=== PATIENT | male | born 1980 | race Caucasian/White ===

== ENCOUNTER 2019-12-30 05:44 | Observation (INO) | payer OTHER ==
[2019-12-30] MEDS ORDERED: ONDANSETRON 4 MG/2 ML VIAL IVP STA (06:18)
[2019-12-30] MEDS ORDERED: SODIUM CHLORIDE 0.9% 1,000 ML IV STA ×2 (06:18)
[2019-12-30] MEDS ORDERED: KETOROLAC 30 MG/ML 1 ML VIAL IVP STA (06:18)
[2019-12-30] MEDS ORDERED: MORPHINE SULFATE 4 MG/ML SYRINGE IV STA (06:18)
--- NOTE | 2019-12-30 06:35 | ED ---
Abdominal Pain HPI <Dilan Santos - Last Filed: 12/30/19 09:05> - General Source: patient, RN notes reviewed, old records reviewed Mode of arrival: ambulatory Limitations: no limitations <Melina Peralta - Last Filed: 12/30/19 09:32> - General Chief Complaint: Abdominal Pain Stated Complaint: abd pain Time Seen by Provider: 12/30/19 06:02 - History of Present Illness Initial Comments: Dylon is a 39-year-old male who presents emergency department today for evaluation for her sudden onset of right lower quadrant abdominal pain and passing blood clots in the Urine last night. He reports for the past 2 hours she's not been able to urinate. He complains of some nausea and did vomit early this morning. Denies any significant changes in the stool. Denies any fevers or chills. Patient has a history of polycystic kidney disease. Reports is followed with urologist many years ago. (Melina Peralta) - Related Data Home Medications Medication Instructions Recorded Confirmed Loratadine [Claritin] 10 mg PO DAILY 12/30/19 12/30/19 Losartan Potassium 100 mg PO DAILY 12/30/19 12/30/19 Metoprolol Succinate [Toprol XL] 50 mg PO HS 12/30/19 12/30/19 Multivit-Min/Folic/Vit K/Lycop 1 tab PO DAILY 12/30/19 12/30/19 [Men's Multivitamin Tablet] Allergies Allergy/AdvReac Type Severity Reaction Status Date / Time Penicillins Allergy Unknown Verified 12/30/19 07:42 Childhood Sulfa (Sulfonamide Allergy Unknown Verified 12/30/19 07:42 Antibiotics) Childhood Review of Systems ROS Other: All systems not noted in ROS Statement are negative. <Dilan Santos - Last Filed: 12/30/19 09:05> ROS Other: All systems not noted in ROS Statement are negative. <Melina Prealta - Last Filed: 12/30/19 09:32> ROS Statement: Those systems with pertinent positive or pertinent negative responses have been documented in the HPI. Past Medical History Past Medical History: Hypertension Additional Past Medical History / Comment(s): polycystic kidney History of Any Multi-Drug Resistant Organisms: None Reported Past Surgical History: No Surgical Hx Reported Past Psychological History: No Psychological Hx Reported Smoking Status: Current every day smoker Past Alcohol Use History: Daily Past Drug Use History: None Reported <KathrynMelina - Last Filed: 12/30/19 09:32> General Exam Limitations: no limitations General appearance: alert, in no apparent distress Head exam: Present: atraumatic, normocephalic, normal inspection Eye exam: Present: normal appearance, PERRL, EOMI. Absent: scleral icterus, conjunctival injection, periorbital swelling ENT exam: Present: normal exam, mucous membranes moist Neck exam: Present: normal inspection. Absent: tenderness, meningismus, ly mphadenopathy Respiratory exam: Present: normal lung sounds bilaterally. Absent: respiratory distress, wheezes, rales, rhonchi, stridor Cardiovascular Exam: Present: regular rate, normal rhythm, normal heart sounds. Absent: systolic murmur, diastolic murmur, rubs, gallop, clicks GI/Abdominal exam: Present: soft, normal bowel sounds. Absent: distended, tenderness, guarding, rebound, rigid Extremities exam: Present: normal inspection, full ROM, normal capillary refill. Absent: tenderness, pedal edema, joint swelling, calf tenderness Back exam: Present: normal inspection, full ROM Neurological exam: Present: alert, oriented X3, CN II-XII intact Psychiatric exam: Present: normal affect, normal mood Skin exam: Present: warm, dry, intact, normal color. Absent: rash <Maggie Peraltaily - Last Filed: 12/30/19 09:32> - General Exam Comments Initial Comments: Alert and oriented 39-year-old male. No significant distress. (Melina Peralta) Course Vital Signs 12/30/19 12/30/19 05:50 07:18 Temperature 98.1 F 98.3 F Pulse Rate 82 91 Respiratory 18 18 Rate Blood Pressure 188/112 148/89 O2 Sat by Pulse 99 97 Oximetry Medical Decision Making - Lab Data Result diagrams: 12/30/19 08:47 12/30/19 06:29 <Dilan Santos - Last Filed: 12/30/19 09:05> - Lab Data Result diagrams: 12/30/19 08:47 12/30/19 06:29 - Radiology Data Radiology results: report reviewed <Melina Peralta - Last Filed: 12/30/19 09:32> - Medical Decision Making Patient reevaluated and reexamined by myself, Dr. Santos. Patient states he has been having waxing and waning symptoms for the past 2 days. Discomfort was moderate to severe earlier. Discomfort is near resolved at this time. Discomfort was mostly right lower flank pain patient reexamined and reevaluated. I do agree with a findings. This includes diagnostic interpretation and treat ment plan. Case was discussed in detail with Dr. Pittman who recommended repeat white blood cell count and if still elevated to admit to medicine with infectious disease consult. He does question infected cyst. Case was also discussed with Dr. Aviles, who will admit For hospital call. (Dilan Santos) 39-year-old male presents return today with waxing and waning right lower quadrant abdominal pain and flank pain starting last night into this morning. Patient had some relief quadrant tenderness. He refused any pain medication emergency department. Patient's labs showed significant leukocytosis of 30,000. Urinalysis was eventually completed and did have significant amount of hematuria. He has no fever at this time. I discussed case with Dr. Santos from discussed the case with urologist Dr. Pittman. This time and started the Patient on Rocephin after his repeated CBCs discontinue the elevated at 26,000. (Melina Peralta) - Lab Data Lab Results 12/30/19 12/30/19 12/30/19 Range/Units 06:26 06:29 07:45 WBC 31.2 H (3.8-10.6) k/uL RBC 4.81 (4.30-5.90) m/uL Hgb 15.2 (13.0-17.5) gm/dL Hct 45.1 (39.0-53.0) % MCV 93.8 (80.0-100.0) fL MCH 31.6 (25.0-35.0) pg MCHC 33.6 (31.0-37.0) g/dL RDW 13.1 (11.5-15.5) % Plt Count 258 (150-450) k/uL Neutrophils % 88 % Lymphocytes % 6 % Monocytes % 4 % Eosinophils % 1 % Basophils % 0 % Neutrophils # 27.5 H (1.3-7.7) k/uL Lymphocytes # 1.7 (1.0-4.8) k/uL Monocytes # 1.3 H (0-1.0) k/uL Eosinophils # 0.2 (0-0.7) k/uL Basophils # 0.1 (0-0.2) k/uL Sodium 133 L (137-145) mmol/L Potassium 4.5 (3.5-5.1) mmol/L Chloride 101 (98-107) mmol/L Carbon Dioxide 24 (22-30) mmol/L Anion Gap 8 mmol/L BUN 33 H (9-20) mg/dL Creatinine 1.66 H (0.66-1.25) mg/dL Est GFR (CKD-EPI)AfAm 58 (>60 ml/min/1.73 sqM) Est GFR (CKD-EPI)NonAf 51 (>60 ml/min/1.73 sqM) Glucose 121 H (74-99) mg/dL Calcium 9.3 (8.4-10.2) mg/dL Total Bilirubin 0.5 (0.2-1.3) mg/dL AST 25 (17-59) U/L ALT 14 (4-49) U/L Alkaline Phosphatase 58 (38-126) U/L Total Protein 6.7 (6.3-8.2) g/dL Albumin 4.4 (3.5-5.0) g/dL Amylase 103 (30-110) U/L Lipase 150 (23-300) U/L Urine Color Light Red Urine Appearance Cloudy (Clear) Urine pH 5.5 (5.0-8.0) Ur Specific Wallace 1.010 (1.001-1.035) Urine Protein 1+ H (Negative) Urine Glucose (UA) Negative (Negative) Urine Ketones 1+ H (Negative) Urine Blood Large H (Negative) Urine Nitrite Negative (Negative) Urine Bilirubin Negative (Negative) Urine Urobilinogen <2.0 (<2.0) mg/dL Ur Leukocyte Esterase Small H (Negative) Urine RBC >182 H (0-5) /hpf Urine WBC 21 H (0-5) /hpf Ur Squamous Epith Cells 2 (0-4) /hpf Urine Bacteria Occasional H (None) /hpf Urine Mucus Occasional H (None) /hpf 12/30/19 Range/Units 08:47 WBC 26.9 H (3.8-10.6) k/uL RBC 4.53 (4.30-5.90) m/uL Hgb 14.3 (13.0-17.5) gm/dL Hct 42.2 (39.0-53.0) % MCV 93.3 (80.0-100.0) fL MCH 31.5 (25.0-35.0) pg MCHC 33.8 (31.0-37.0) g/dL RDW 13.2 (11.5-15.5) % Plt Count 251 (150-450) k/uL Neutrophils % 89 % Lymphocytes % 7 % Monocytes % 3 % Eosinophils % 1 % Basophils % 0 % Neutrophils # 23.8 H (1.3-7.7) k/uL Lymphocytes # 1.8 (1.0-4.8) k/uL Monocytes # 0.9 (0-1.0) k/uL Eosinophils # 0.2 (0-0.7) k/uL Basophils # 0.0 (0-0.2) k/uL Sodium (137-145) mmol/L Potassium (3.5-5.1) mmol/L Chloride (98-107) mmol/L Carbon Dioxide (22-30) mmol/L Anion Gap mmol/L BUN (9-20) mg/dL Creatinine (0.66-1.25) mg/dL Est GFR (CKD-EPI)AfAm (>60 ml/min/1.73 sqM) Est GFR (CKD-EPI)NonAf (>60 ml/min/1.73 sqM) Glucose (74-99) mg/dL Calcium (8.4-10.2) mg/dL Total Bilirubin (0.2-1.3) mg/dL AST (17-59) U/L ALT (4-49) U/L Alkaline Phosphatase (38-126) U/L Total Protein (6.3-8.2) g/dL Albumin (3.5-5.0) g/dL Amylase (30-110) U/L Lipase (23-300) U/L Urine Color Urine Appearance (Clear) Urine pH (5.0-8.0) Ur Specific Wallace (1.001-1.035) Urine Protein (Negative) Urine Glucose (UA) (Negative) Urine Ketones (Negative) Urine Blood (Negative) Urine Nitrite (Negative) Urine Bilirubin (Negative) Urine Urobilinogen (<2.0) mg/dL Ur Leukocyte Esterase (Negative) Urine RBC (0-5) /hpf Urine WBC (0-5) /hpf Ur Squamous Epith Cells (0-4) /hpf Urine Bacteria (None) /hpf Urine Mucus (None) /hpf - Radiology Data Numerous hepatic and renal cysts related processes a kidney disease. Massive enlargement of both kidneys. Complex bilateral numerous renal cyst containing some calcium. No definite sign of renal obstruction. Numerous bilateral renal colliculi. No sign of ureteral calculus. (Melina Peralta) Disposition <Dilan Santos - Last Filed: 12/30/19 09:05> Is patient prescribed a controlled substance at d/c from ED?: No Time of Disposition: 09:31 <Melina Peralta - Last Filed: 12/30/19 09:32> Clinical Impression: Leukocytosis, PCK (polycystic kidney disease), Right flank pain Disposition: ADMITTED IP TO THIS HOSP Condition: Stable Referrals: Michael Marvin MD [Primary Care Provider] - 1-2 days
[2019-12-30 06:44] LABS: Basophils # (A) 0.1 k/uL (0-0.2); Basophils % (A) 0 %; Eosinophils # (A) 0.2 k/uL (0-0.7); Eosinophils % (A) 1 %; HCT 45.1 % (39.0-53.0); HGB 15.2 gm/dL (13.0-17.5); Lymphocytes # (A) 1.7 k/uL (1.0-4.8); Lymphocytes % (A) 6 %; MCH 31.6 pg (25.0-35.0); MCHC 33.6 g/dL (31.0-37.0); MCV 93.8 fL (80.0-100.0); Mean Platelet Volume 8.9; Monocytes # (A) 1.3 k/uL (0-1.0); Monocytes % (A) 4 %; Neutrophils # (A) 27.5 k/uL (1.3-7.7); Neutrophils % (A) 88 %; Platelet Count 258 k/uL (150-450); RBC 4.81 m/uL (4.30-5.90); RDW 13.1 % (11.5-15.5); WBC 31.2 k/uL (3.8-10.6)
[2019-12-30 06:44] LABS: Albumin 4.4 g/dL (3.5-5.0); Calcium 9.3 mg/dL (8.4-10.2); Potassium 4.5 mmol/L (3.5-5.1); Total Bilirubin 0.5 mg/dL (0.2-1.3); Total Protein 6.7 g/dL (6.3-8.2)
--- NOTE | 2019-12-30 07:04 | CT ---
EXAMINATION TYPE: CT abdomen pelvis wo con DATE OF EXAM: 12/30/2019 COMPARISON: None HISTORY: Flank pain, Kidney sstone suspected CT DLP: 465.2 mGycm Automated exposure control for dose reduction was used. Images were obtained from the diaphragm to the floor the pelvis with no contrast. Lung bases are clear of consolidation. There is no pleural effusion. Heart size is normal. There is n o pericardial effusion. There are numerous cysts throughout the liver that measure up to 3.5 cm. The bile ducts are not dilated. Spleen is intact. Stomach is intact. There is no sign of pancreatic mass. There is significant enlargement of the kidneys due to polycystic kidney disease. The left kidney me asures 19.5 cm in length. The right kidney measures 18 cm in length. There are multiple tiny calculi in both kidneys that measure up to 4 mm. There is a single 11 mm calculus anterior left kidney. There are multiple small calcified renal cysts that measure up to 1.5 cm. I see no sign of hydronephrosis. Bladder distends smoothly. Ureters are not dilated. Prostate is enlarged and measures 5.1 cm. There is no inguinal hernia. There is no free fluid in the pelvis. Appendix is posterior and appears normal . There is no mesenteric edema. There is no ascites or free air. There is no sign of a bowel obstructio n. There is no evidence of retroperitoneal adenopathy. There is intact lumbar spine. There is no comp ression fracture. Bony pelvis is intact. IMPRESSION: Numerous hepatic and renal cysts related to polycystic disease. Massive enlargement of both kidneys. Complex bilateral numerous renal cysts contain some calcium. No definite sign of renal obstruction. N umerous bilateral small renal calculi. No sign of a ureteral calculus.
[2019-12-30] MEDS ORDERED: SODIUM CHLORIDE 0.9% 1,000 ML IV ONE (07:16)
[2019-12-30 08:12] LABS: Appearance,Urine Cloudy (Clear); Bacteria,Urine Occasional /hpf; Bilirubin,Urine Negative (Negative); Blood,Urine Large (Negative); Color,Urine Light Red; Glucose,Urine (UA) Negative (Negative); Ketones,Urine 1+ (Negative); Leukocyte Esterase,Urine Small (Negative); Mucus,Urine Occasional /hpf; Nitrite,Urine Negative (Negative); PH, Urine 5.5 (5.0-8.0); Protein,Urine 1+ (Negative); RBC,Urine >182 /hpf (0-5); Squamous Epithelial Cell,Urine 2 /hpf (0-4); Urobilinogen,Urine <2.0 mg/dL (<2.0); WBC,Urine 21 /hpf (0-5)
[2019-12-30 08:57] LABS: Basophils % (A) 0 %; Eosinophils # (A) 0.2 k/uL (0-0.7); Eosinophils % (A) 1 %; HCT 42.2 % (39.0-53.0); HGB 14.3 gm/dL (13.0-17.5); Lymphocytes # (A) 1.8 k/uL (1.0-4.8); Lymphocytes % (A) 7 %; MCH 31.5 pg (25.0-35.0); MCHC 33.8 g/dL (31.0-37.0); MCV 93.3 fL (80.0-100.0); Mean Platelet Volume 7.7; Monocytes # (A) 0.9 k/uL (0-1.0); Monocytes % (A) 3 %; Neutrophils # (A) 23.8 k/uL (1.3-7.7); Neutrophils % (A) 89 %; Platelet Count 251 k/uL (150-450); RBC 4.53 m/uL (4.30-5.90); RDW 13.2 % (11.5-15.5); WBC 26.9 k/uL (3.8-10.6)
[2019-12-30] MEDS ORDERED: KETOROLAC 30 MG/ML 1 ML VIAL IVP PRN (09:32)
[2019-12-30] MEDS ORDERED: NALOXONE 0.4 MG/ML 1 ML VIAL IV PRN (09:32)
[2019-12-30] MEDS ORDERED: IBUPROFEN 400 MG TAB PO PRN (09:32)
[2019-12-30] MEDS ORDERED: ACETAMINOPHEN TAB 325 MG TAB PO PRN (09:32)
[2019-12-30] MEDS ORDERED: ONDANSETRON 4 MG/2 ML VIAL IVP PRN (09:32)
[2019-12-30] MEDS ORDERED: MORPHINE SULFATE 4 MG/ML SYRINGE IV PRN (09:32)
[2019-12-30] MEDS: SODIUM CHLORIDE 0.9% 1,000 ML IV SCH (09:46)
--- NOTE | 2019-12-30 17:33 | HP ---
HISTORY AND PHYSICAL CHIEF COMPLAINT: This is a 39-year-old male who presents with right lower quadrant abdominal pain and severe hematuria for the last 2 days. He states now since he has been in the hospital, the pain has resolved, his urine is more clear now, but he has never had 2 days of pain and blood before. He has a history of polycystic kidney disease and hypertension but no history of renal stones. He has not had bleeding like this ever before. His home medicines are losartan 100 mg daily, Claritin 10 mg daily, metoprolol 50 mg daily, multivitamin daily. ALLERGIES: PENICILLIN, SULFA. REVIEW OF SYSTEMS: Fourteen-point review of systems otherwise negative. PAST MEDICAL HISTORY: Hypertension, polycystic kidney disease. SOCIAL HISTORY: Current everyday smoker, half pack a day since age 11. Daily alcohol, 2-3 beers a day. No drugs. PHYSICAL EXAMINATION: PSYCH: He is cooperative, giving appropriate answers. Fair mood and affect. NEURO: Cranial nerves are intact. Pupils equal, round, reactive. No scleral icterus. LUNGS: Clear. CARDIOVASCULAR: S1, S2. GI: Soft. Normal bowel sounds. Non-tender. No flank tenderness. EXTREMITIES: No cyanosis, clubbing, edema. normal inspection. Full range of motion. SKIN: Warm, dry, intact. VITAL SIGNS: Temperature 98.1, respiratory rate 16 to 18. Blood pressure on admission was 188/112, currently 140s over 80s, O2 97% on room air. White count was elevated at 26.9, hemoglobin was 14.3, BUN is 32, creatinine 1.66. Dr. Mendoza, urologist, is consulted. We are going to consult Infectious Disease for elevated white count. No signs of any fevers. Polycystic renal disease versus infected cyst. Consult Infectious Disease. Possibly treat with antibiotics at this time. Rehydrate the patient. Continue with Rocephin. Monitor CBCs. Prognosis guarded. MMODL / IJN: [id number] /
--- NOTE | 2019-12-30 18:25 | P.GSCN ---
History of Present Illness Consult date: 12/30/19 History of present illness: This is a pleasant 39-year-old gentleman who presented to the emergency room with abdominal pain on the right side right flank pain and gross hematuria today. The patient has a known history of autosomal dominant polycystic kidney disease. His mother and grandfather both had renal failure due to this. He has seen a senior web services developer in [place] but not recently due to lack of insurance. He is aware of his disease and pending renal failure. In the emergency room he was found to have an elevated white count of 30,000. His urinalysis showed 180 red cells and 20 white cells. A computed tomography scan showed classic autosomal dominant polycystic kidneys. There are no obvious masses just multiple cysts. By the time I see him this afternoon the white count dropped to 26,000. His hematuria is cleared as has his pain. He denies any lower urinary tract symptoms other than when he passed the blood. He has not had any problems with urinary tract infections or voiding. He does admit to recent treatment with steroids due to sinus problems. He just finished this a few days ago. This perhaps could explain the elevated white blood cell count. He is never seen a urologist before. Review of Systems All systems: negative - Constitutional Denies fever, Denies weight loss - EENT Eyes: denies blurred vision Ears, nose, mouth and throat: Denies dysphagia - Cardiovascular Denies chest pain, Denies shortness of breath - Respiratory Denies cough, Denies 7 - Gastrointestinal Reports as per HPI - Genitourinary Denies dysuria, Denies hematuria - Integumentary Denies rash, Denies unusual bruising - Neurological Denies headaches, Denies syncope - Hematologic/Lymphatic Denies easy bleeding, Denies easy bruising Past Medical History Past Medical History: GERD/Reflux, Hypertension, Pneumonia, Renal Disease Additional Past Medical History / Comment(s): Polycystc kidney disease, hematuria, recent L shoulder injury, bronchitis, environmental allergies. History of Any Multi-Drug Resistant Organisms: None Reported Past Surgical History: No Surgical Hx Reported Past Anesthesia/Blood Transfusion Reactions: Unable to Obtain Additional Past Anesthesia/Blood Transfusion Reaction / Comm: Pt has never had surgery Smoking Status: Current every day smoker - Past Family History Father Family Medical History: COPD, Coronary Artery Disease (CAD), Diabetes Mellitus Additional Family Medical History / Comment(s): Father had a OH in his 50s. Mother Family Medical History: Congestive Heart Failure (CHF), Renal Disease Additional Family Medical History / Comment(s): Mother at the age of 68yrs. Medications and Allergies Home Medications Medication Instructions Recorded Confirmed Type Loratadine [Claritin] 10 mg PO DAILY 12/30/19 12/30/19 History Losartan Potassium 100 mg PO DAILY 12/30/19 12/30/19 History Metoprolol Succinate [Toprol XL] 50 mg PO HS 12/30/19 12/30/19 History Multivit-Min/Folic/Vit K/Lycop 1 tab PO DAILY 12/30/19 12/30/19 History [Men's Multivitamin Tablet] Allergies Allergy/AdvReac Type Severity Reaction Status Date / Time Penicillins Allergy Unknown Verified 12/30/19 07:42 Childhood Sulfa (Sulfonamide Allergy Unknown Verified 12/30/19 07:42 Antibiotics) Childhood Surgical - Exam Vital Signs Temp Pulse Resp BP Pulse Ox 98.1 F 82 18 188/112 99 12/30/19 05:50 12/30/19 05:50 12/30/19 05:50 12/30/19 05:50 12/30/19 05:50 - General well developed, well nourished, no distress - Eyes PERRL - ENT no hearing loss - Neck no masses, trachea midline - Respiratory normal expansion, normal respiratory effort - Cardiovascular Rhythm: regular - Abdomen Abdomen: soft, non tender - Genitourinary normal penis with no external lesions, testicles present - Integumentary no rash, no growths - Neurologic normal coordination, normal sensation - Musculoskeletal normal posture - Psychiatric oriented to time, oriented to person, oriented to place, speech is normal, memory intact Results - Labs 12/30/19 08:47 12/30/19 06:29 Abnormal Lab Results - Last 24 Hours (Table) 12/30/19 12/30/19 12/30/19 Range/Units 06:26 06:29 07:45 WBC 31.2 H (3.8-10.6) k/uL Neutrophils # 27.5 H (1.3-7.7) k/uL Monocytes # 1.3 H (0-1.0) k/uL Sodium 133 L (137-145) mmol/L BUN 33 H (9-20) mg/dL Creatinine 1.66 H (0.66-1.25) mg/dL Glucose 121 H (74-99) mg/dL Urine Protein 1+ H (Negative) Urine Ketones 1+ H (Negative) Urine Blood Large H (Negative) Ur Leukocyte Esterase Small H (Negative) Urine RBC >182 H (0-5) /hpf Urine WBC 21 H (0-5) /hpf Urine Bacteria Occasional H (None) /hpf Urine Mucus Occasional H (None) /hpf 12/30/19 Range/Units 08:47 WBC 26.9 H (3.8-10.6) k/uL Neutrophils # 23.8 H (1.3-7.7) k/uL Monocytes # (0-1.0) k/uL Sodium (137-145) mmol/L BUN (9-20) mg/dL Creatinine (0.66-1.25) mg/dL Glucose (74-99) mg/dL Urine Protein (Negative) Urine Ketones (Negative) Urine Blood (Negative) Ur Leukocyte Esterase (Negative) Urine RBC (0-5) /hpf Urine WBC (0-5) /hpf Urine Bacteria (None) /hpf Urine Mucus (None) /hpf Microbiology - Last 24 Hours (Table) 12/30/19 07:45 Urine Culture - Preliminary Urine,Voided Diabetes panel 12/30/19 Range/Units 06:29 Sodium 133 L (137-145) mmol/L Potassium 4.5 (3.5-5.1) mmol/L Chloride 101 (98-107) mmol/L Carbon Dioxide 24 (22-30) mmol/L BUN 33 H (9-20) mg/dL Creatinine 1.66 H (0.66-1.25) mg/dL Glucose 121 H (74-99) mg/dL Calcium 9.3 (8.4-10.2) mg/dL AST 25 (17-59) U/L ALT 14 (4-49) U/L Alkaline Phosphatase 58 (38-126) U/L Total Protein 6.7 (6.3-8.2) g/dL Albumin 4.4 (3.5-5.0) g/dL Calcium panel 12/30/19 Range/Units 06:29 Calcium 9.3 (8.4-10.2) mg/dL Albumin 4.4 (3.5-5.0) g/dL Pituitary panel 12/30/19 Range/Units 06:29 Sodium 133 L (137-145) mmol/L Potassium 4.5 (3.5-5.1) mmol/L Chloride 101 (98-107) mmol/L Carbon Dioxide 24 (22-30) mmol/L BUN 33 H (9-20) mg/dL Creatinine 1.66 H (0.66-1.25) mg/dL Glucose 121 H (74-99) mg/dL Calcium 9.3 (8.4-10.2) mg/dL Adrenal panel 12/30/19 Range/Units 06:29 Sodium 133 L (137-145) mmol/L Potassium 4.5 (3.5-5.1) mmol/L Chloride 101 (98-107) mmol/L Carbon Dioxide 24 (22-30) mmol/L BUN 33 H (9-20) mg/dL Creatinine 1.66 H (0.66-1.25) mg/dL Glucose 121 H (74-99) mg/dL Calcium 9.3 (8.4-10.2) mg/dL Total Bilirubin 0.5 (0.2-1.3) mg/dL AST 25 (17-59) U/L ALT 14 (4-49) U/L Alkaline Phosphatase 58 (38-126) U/L Total Protein 6.7 (6.3-8.2) g/dL Albumin 4.4 (3.5-5.0) g/dL - Imaging CT scan - abdomen: report reviewed, image reviewed CT scan - pelvis: report reviewed, image reviewed Assessment and Plan Assessment: Impression: Gross hematuria secondary to probable ruptured cyst from a cystic kidneys. Autosomal dominant polycystic kidney disease with renal insufficiency. Elevated white count perhaps due to the pain and trauma of the ruptured cyst aggravated by the recent steroid usage for sinus problems. Recommendations: Ultrasound been obtained. I do not see any obvious masses other than the renal cysts. I did discuss with the patient about the rare but potential possibility of renal masses associated with polycystic kidneys. The patient does need nephrology follow-up here locally as he eventually will go on to complete renal failure need dialysis and hopeful transplantation. He understands this. I'll follow this patient with you.
--- NOTE | 2019-12-30 18:56 | XR ---
EXAMINATION: XR chest 2V DATE AND TIME: 12/30/2019 5:42 PM CLINICAL INDICATION: PHH; leukocytosis TECHNIQUE: Departmental protocol COMPARISON: None FINDINGS: The lungs are clear. The pleural spaces are negative. The cardiac silhouette is not enlarged. The remainder of the mediastinal silhouette is unremarkable. The skeletal structures and soft tissues are negative for acute findings. IMPRESSION: NO ACUTE PROCESS.
[2019-12-30] MEDS: LOSARTAN 50 MG TAB PO SCH (20:56)
[2019-12-30] MEDS ORDERED: METOPROLOL SUCCINATE (ER) 50 MG TAB.ER.24H PO SCH (21:00)
[2019-12-31] MEDS: SODIUM CHLORIDE 0.9% 1,000 ML IV SCH ×2 (07:04→16:21)
--- NOTE | 2019-12-31 08:03 | P.CONS ---
History of Present Illness - Reason for Consult Consult date: 12/30/19 Urinary tract infection Requesting physician: Valentín Aviles - Chief Complaint Right-sided flank pain and hematuria x few days - History of Present Illness Patient is 39 year male with a past medical history significant for polycystic kidney disease in this patient presented in outpatient setting with steroids for a sinus infection by his primary care physician patient is presenting to the ER received copies of right flank pain that has been more sudden onset and progressively get worse to be almost 10 out of 10 and this is some nausea no vomiting. Sulfa complaining of hematuria for 2 days denies significant burning or fever no chest pain or shortness of with the second and the patient presented to the hospital on arrival to the ER the patient was afeb rile however he did have white count 31,000 patient did have a positive UA but predominantly with hematuria patient did have a CT of abdominal pelvis which shows bilateral renal and hepatic cyst with significant involvement of the kidneys hence feel complicated renal cyst patient was started on Rocephin 1 g every 12 hours infectious disease was consulted for further management of antibiotic therapy Review of Systems Positive point has been mentioned in the HPI rest of the systems are negative Past Medical History Past Medical History: GERD/Reflux, Hypertension, Pneumonia, Renal Disease Additional Past Medical History / Comment(s): Polycystc kidney disease, hematuria, recent L shoulder injury, bronchitis, environmental allergies. History of Any Multi-Drug Resistant Organisms: None Reported Past Surgical History: No Surgical Hx Reported Past Anesthesia/Blood Transfusion Reactions: Unable to Obtain Additional Past Anesthesia/Blood Transfusion Reaction / Comm: Pt has never had surgery Smoking Status: Current every day smoker - Past Family History Father Family Medical History: COPD, Coronary Artery Disease (CAD), Diabetes Mellitus Additional Family Medical History / Comment(s): Father had a AR in his 50s. Mother Family Medical History: Congestive Heart Failure (CHF), Renal Disease Additional Family Medical History / Comment(s): Mother at the age of 68yrs. Medications and Allergies Home Medications Medication Instructions Recorded Confirmed Type Loratadine [Claritin] 10 mg PO DAILY 12/30/19 12/30/19 History Losartan Potassium 100 mg PO DAILY 12/30/19 12/30/19 History Metoprolol Succinate [Toprol XL] 50 mg PO HS 12/30/19 12/30/19 History Multivit-Min/Folic/Vit K/Lycop 1 tab PO DAILY 12/30/19 12/30/19 History [Men's Multivitamin Tablet] Allergies Allergy/AdvReac Type Severity Reaction Status Date / Time Penicillins Allergy Unknown Verified 12/30/19 07:42 Childhood Sulfa (Sulfonamide Allergy Unknown Verified 12/30/19 07:42 Antibiotics) Childhood Physical Exam Vitals: Vital Signs Temp Pulse Pulse Pulse Resp BP BP 12/30/19 19:10 99.4 F 77 22 167/98 12/30/19 14:41 98.4 F 79 16 156/96 12/30/19 12:03 98.1 F 79 16 147/98 12/30/19 09:40 98.5 F 87 18 151/98 12/30/19 07:18 98.3 F 91 18 148/89 12/30/19 05:50 98.1 F 82 18 188/112 Pulse Ox 12/30/19 19:10 96 12/30/19 14:41 98 12/30/19 12:03 95 12/30/19 09:40 98 12/30/19 07:18 97 12/30/19 05:50 99 Intake and Output 12/30/19 12/30/19 12/30/19 06:59 14:59 22:59 Intake Total 540 Output Total 1250 Balance -710 Intake: Oral 540 Output: Urine 1250 Other: Voiding Method Toilet Toilet # Voids 1 Weight 68.039 kg 68.039 kg GENERAL DESCRIPTION: Middle-aged male lying in bed, no distress. No tachypnea or accessory muscle of respiration use. HEENT: Shows Pallor , no scleral icterus. Oral mucous membrane is dry. No pharyngeal erythema or thrush NECK: Trachea central, no thyromegaly. LUNGS: Unlabored breathing. Clear to auscultation anteriorly. No wheeze or crackle. HEART: S1, S2, regular rate and rhythm. No loud murmur ABDOMEN: Soft, no tenderness , guarding or rigidity, no organomegaly EXTREMITIES: No edema of feet. SKIN: No rash, no masses palpable. NEUROLOGICAL: The patient is awake, alert, oriented x3, mood and affect normal. Results CBC & Chem 7: 12/30/19 08:47 12/30/19 06:29 Labs: Abnormal Lab Results - Last 24 Hours (Table) 12/30/19 12/30/19 12/30/19 Range/Units 06:26 06:29 07:45 WBC 31.2 H (3.8-10.6) k/uL Neutrophils # 27.5 H (1.3-7.7) k/uL Monocytes # 1.3 H (0-1.0) k/uL Sodium 133 L (137-145) mmol/L BUN 33 H (9-20) mg/dL Creatinine 1.66 H (0.66-1.25) mg/dL Glucose 121 H (74-99) mg/dL Urine Protein 1+ H (Negative) Urine Ketones 1+ H (Negative) Urine Blood Large H (Negative) Ur Leukocyte Esterase Small H (Negative) Urine RBC >182 H (0-5) /hpf Urine WBC 21 H (0-5) /hpf Urine Bacteria Occasional H (None) /hpf Urine Mucus Occasional H (None) /hpf 12/30/19 Range/Units 08:47 WBC 26.9 H (3.8-10.6) k/uL Neutrophils # 23.8 H (1.3-7.7) k/uL Monocytes # (0-1.0) k/uL Sodium (137-145) mmol/L BUN (9-20) mg/dL Creatinine (0.66-1.25) mg/dL Glucose (74-99) mg/dL Urine Protein (Negative) Urine Ketones (Negative) Urine Blood (Negative) Ur Leukocyte Esterase (Negative) Urine RBC (0-5) /hpf Urine WBC (0-5) /hpf Urine Bacteria (None) /hpf Urine Mucus (None) /hpf Microbiology - Last 24 Hours (Table) 12/30/19 07:45 Urine Culture - Preliminary Urine,Voided Assessment and Plan Assessment: 1- patient presented to hospital with right flank pain significant hematuria however didn't have any fever did have elevated white count could be related to steroid effect and the patient was recently in the outpatient setting on steroids for URI symptoms are mostly suggestive of bleeding from his polycystic kidney, rather than pyelonephritis underlying UTI not entirely excluded 2- Patient with multiple antibiotic ALLERGIES that would limit the number of antibiotic safe to use (1) Urinary tract infection Current Visit: Yes Status: Acute Code(s): N39.0 - URINARY TRACT INFECTION, SITE NOT SPECIFIED SNOMED Code(s): 49978843 (2) Leukocytosis Current Visit: Yes Status: Acute Code(s): D72.829 - ELEVATED WHITE BLOOD CELL COUNT, UNSPECIFIED SNOMED Code(s): 326382682 Plan: 1- we will switch Rocephin 2 g IV piggyback daily 2- gentle IV fluid We will follow on clinical condition and cultures to further adjust medication if needed Thank you for this consultation will follow this patient with you Time with Patient: Greater than 30
[2019-12-31 08:29] VITALS: PULSE 68; RESP 18
[2019-12-31 08:30] LABS: Basophils # (A) 0.1 k/uL (0-0.2); Basophils % (A) 1 %; Eosinophils # (A) 0.3 k/uL (0-0.7); Eosinophils % (A) 2 %; HCT 43.9 % (39.0-53.0); Lymphocytes # (A) 3.4 k/uL (1.0-4.8); Lymphocytes % (A) 26 %; MCH 29.8 pg (25.0-35.0); MCHC 31.9 g/dL (31.0-37.0); MCV 93.3 fL (80.0-100.0); Mean Platelet Volume 7.8; Monocytes # (A) 0.8 k/uL (0-1.0); Monocytes % (A) 6 %; Neutrophils # (A) 8.5 k/uL (1.3-7.7); Neutrophils % (A) 63 %; Platelet Count 248 k/uL (150-450); RDW 13.1 % (11.5-15.5); WBC 13.3 k/uL (3.8-10.6)
[2019-12-31 08:53] LABS: Albumin 3.4 g/dL (3.5-5.0); Calcium 8.6 mg/dL (8.4-10.2); Potassium 4.7 mmol/L (3.5-5.1); Total Bilirubin 0.7 mg/dL (0.2-1.3); Total Protein 5.6 g/dL (6.3-8.2)
[2019-12-31] MEDS ORDERED: PANTOPRAZOLE 40 MG/10 ML VIAL IV SCH (09:00)
[2019-12-31] MEDS ORDERED: LORATADINE 10 MG TAB PO SCH (09:00)
[2019-12-31] MEDS ORDERED: LOSARTAN 50 MG TAB PO SCH (09:00)
[2019-12-31] MEDS ORDERED: MULTIVITAMINS, THERA 1 EACH TAB PO SCH (09:00)
[2019-12-31] MEDS: LOSARTAN 50 MG TAB PO SCH (09:04)
--- NOTE | 2019-12-31 14:07 | PN ---
PROGRESS NOTE DATE OF SERVICE: 12/31/2019 REASON FOR FOLLOWUP: Urinary tract infection. INTERVAL HISTORY: The patient is currently afebrile. The patient is feeling better. Breathing comfortably. The patient right hand discomfort has improved and hematuria has resolved. No chest pain, shortness of breath or cough. PHYSICAL EXAMINATION: Blood pressure 158/90 with a pulse of 58, temperature 98.1, he is 94% on room air. General description is a middle-aged male lying in bed in no distress. RESPIRATORY SYSTEM: Unlabored breathing, clear to auscultation anteriorly. HEART: S1, S2. Regular rate and rhythm. ABDOMEN: Soft, no tenderness. LABS: Hemoglobin is 14.3, white count 13.3, creatinine 1.20. Urine culture currently pending. DIAGNOSTIC IMPRESSION AND PLAN: Patient with admission to hospital with right flank pain, hematuria with concern for possible bleeding from his renal cyst. Underlying UTI not entirely excluded, though the patient seems to have clinically responded to Rocephin with the discharge antibiotic will be Ceftin. Prescription sent to the pharmacy. Continue supportive care. MMSAADL / LIONELN: [id number] /
[2019-12-31 15:43] VITALS: BP 151/94; TEMP 97.8
--- NOTE | 2020-01-02 10:25 | CDI ---
Documentation Clarification Form Date: 01/02/20 From: Jolene Trinh CCS Phone: If you have a question about this query, please contact Susan Solano, Medical Liaison at [phone] between 8am and 5pm. Admit Date: 12/30/19 Discharge Date:12/31/19 Patient Name: Dylon Chavarria Visit Number: [id number] ATTENTION: The Clinical Documentation Specialists (CDI) and [facility] Coding Staff appreciate your assistance in clarifying documentation. Please respond to the clarification below the line at the bottom and electronically sign. The CDI & [facility] Coding staff will review the response and follow-up if needed. Please note: Queries are made part of the Legal Health Record. If you have any questions, please contact the author of this message via ITS. Dear Dr. 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 History/Risk Factors: Autosomal dominant polycystic kidney disease, Hematuria, UTI Clinical Indicators: Renal insufficiency Lab findings: BUN 33, 21- Creatinine 1.66, 1.20- GFR 51, 75 Consults: Kelly In your professional opinion, can you please clarify renal insufficiency? CKD Stage 1 (GFR > 90) CKD Stage 2 (GFR 60-89) CKD Stage 3 (GFR 30-59) CKD Stage 4 (GFR 15-29) CKD Stage 5 (GFR <15) Renal insufficiency Other, please specify Unable to determine MTDD
--- NOTE | 2020-01-03 07:31 | DS ---
DISCHARGE SUMMARY Please add to discharge: GFR stage 3A. MMKIKI / IJN: [id number] /
== END 2019-12-31 17:15 | disposition home or self-care (01) ==
LOC: EC 05:44 → INTOOBSV 09:06 → 4SSUR 09:06 → UNDODISIN 12-31 17:15
PROVIDERS: ADMIT Family Medicine; ATTEND Family Medicine
DX: N39.0 Urinary tract infection, site not specified (principal); R31.0 Gross hematuria; J32.9 Chronic sinusitis, unspecified; Q61.2 Polycystic kidney, adult type; I12.9 Hypertensive chronic kidney disease with stage 1 through stage 4 chronic kidney disease, or unspecified chronic kidney disease; N18.3 Chronic kidney disease, stage 3 (moderate); F17.210 Nicotine dependence, cigarettes, uncomplicated; K76.89 Other specified diseases of liver; K21.9 Gastro-esophageal reflux disease without esophagitis; Z20.828 Contact with and (suspected) exposure to other viral communicable diseases; Z79.899 Other long term (current) drug therapy; Z88.0 Allergy status to penicillin; Z88.2 Allergy status to sulfonamides; Z87.01 Personal history of pneumonia (recurrent); Z87.828 Personal history of other (healed) physical injury and trauma; Z87.09 Personal history of other diseases of the respiratory system; Z91.09 Other allergy status, other than to drugs and biological substances; Z82.5 Family history of asthma and other chronic lower respiratory diseases; Z82.49 Family history of ischemic heart disease and other diseases of the circulatory system; Z83.3 Family history of diabetes mellitus; Z84.1 Family history of disorders of kidney and ureter
CPT/HCPCS: 96361 ×3; 96366; 96375; 96365; 99285; 51798; 36415; 80053 ×2; 82150; 83690; 85025 ×2; 81001; 87040; 87086; 71046; 74176; G0378 ×2; U0003; J0696 ×2; C9113

== ENCOUNTER → 2024-09-20 | Outpatient (CLI) | payer BC ==
--- NOTE | 2024-09-20 13:49 | US ---
EXAMINATION TYPE: US kidneys/renal and bladder DATE OF EXAM: 09/20/2024 COMPARISON: CT: 12/30/19 CLINICAL INDICATION: Male, 44 years old with history of Q61.2 POLYCYSTIC KIDNEY, ADULT TYPE; polycyst ic kidney disease TECHNIQUE: Grayscale imaging of the bilateral kidneys and urinary bladder: FINDINGS: EXAM MEASUREMENTS: Right Kidney: 18.2 x 11.5 x 9.9 cm Left Kidney: 18.8 x 10.4 x 9.0 cm Right Kidney: numerous cysts seen Left Kidney: numerous cysts seen Bladder: wnl Bilateral Jets seen: yes Normal Post Void Residual: yes There is no evidence for hydronephrosis at this point in time. No nephrolithiasis is seen. No defini tive solid renal masses. Innumerable anechoic small cysts involving both kidneys. These replaced the normal renal parenchyma. No definitive solid renal mass. The urinary bladder is anechoic. Bilateral u reteral jets identified. Normal postvoid residual. IMPRESSION: 1. No hydronephrosis. 2. Findings of polycystic kidney disease with innumerable small cysts involving both kidneys. [facility], , 09/20/2024 1:47 PM
== END | disposition home or self-care (01) ==
LOC: RADUSWWP 13:11
PROVIDERS: ATTEND Internal Medicine Nephrology
DX: Q61.2 Polycystic kidney, adult type (principal)
CPT/HCPCS: 76770

== ENCOUNTER → 2024-10-04 | Outpatient (CLI) | payer BC ==
--- NOTE | 2024-10-04 17:20 | MR ---
CLINICAL INDICATION: Polycystic kidney disease, evaluation for cerebral aneurysm. COMPARISON: No direct comparisons. TECHNIQUE: MR angiography of the head was performed utilizing 3-D noncontrast time of flight images. 3-D reformatted MIP images were generated on a separate workstation for review. Vascular assessment was performed utilizing NASCET criteria. FINDINGS: There is no evidence for focal stenosis, large vessel occlusion, or discrete aneurysm. 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 Left maxillary sinus 9 mm probable mucous retention cyst. IMPRESSION: No evidence for focal stenosis, occlusion or aneurysm. [facility], , 10/04/2024 5:18 PM
== END | disposition home or self-care (01) ==
LOC: RADMRIMAIN 16:05
PROVIDERS: ATTEND Internal Medicine Nephrology
DX: Q61.2 Polycystic kidney, adult type (principal)
CPT/HCPCS: 70544